=== PATIENT | female | born 1950 | race Caucasian/White ===

== ENCOUNTER 2017-05-27 13:08 | Emergency (ER) | payer MEDICARE | END 2017-05-27 14:08 | disposition home or self-care (01) | LOC: ER 13:08 | DX: M13.862 Other specified arthritis, left knee (principal); E78.5 Hyperlipidemia, unspecified; I10 Essential (primary) hypertension; Z88.8 Allergy status to other drugs, medicaments and biological substances | CPT/HCPCS: 96372 ==